=== PATIENT | female | born 1975 | race Hispanic/Latino ===

== ENCOUNTER 2024-02-12 20:49 | Emergency (ER) | payer OTHER ==
[~2024-02-12] VITALS: Ht 172.7 cm; Wt 147.4 kg
[2024-02-12] MEDS ORDERED: AMOX1TAB16 PO (21:18)
[2024-02-12 21:34] VITALS: BP 146/69; PULSE 96; RESP 15; TEMP 98; O2SAT 97
[2024-02-12] MEDS: ketOROlac 60 MG VIAL (30MG/ML) IM ONE (21:41)
== END 2024-02-12 22:30 | disposition home or self-care (01) ==
LOC: EDH 20:49
DX: J02.9 Acute pharyngitis, unspecified (principal); M43.6 Torticollis; E66.9 Obesity, unspecified; Z98.890 Other specified postprocedural states; Z68.30 Body mass index [BMI] 30.0-30.9, adult
CPT/HCPCS: 99284; 96372; J1885